=== PATIENT | male | born 1945 | race Caucasian/White ===

== ENCOUNTER → 2016-09-16 | Outpatient (CLI) | payer OTHER | LOC: MRI 09:45 → KOH-I 10:30 → MRI 10:45 | DX: D49.7 Neoplasm of unspecified behavior of endocrine glands and other parts of nervous system (principal); N28.1 Cyst of kidney, acquired; R16.1 Splenomegaly, not elsewhere classified | CPT/HCPCS: 74181 ==

== ENCOUNTER → 2020-07-27 | Outpatient (CLI) | payer MEDICARE ==
[~2020-07-27] MED LIST: ALBUTEROL2.5 MG/3 M INH; ASPIRIN EC81 MG PO; COLACE 100MG C100 MG PO; ELIQUIS2.5 MG PO; ENULOSE10 GM/15 M PO; HUMALOG100 UNIT/1 SQ; KENALOG CREAM 080 GM TOP; LANTUS100 UNIT/1 SC; NEPHRO-VITE RX1 EACH PO; PROBIOTIC1 EAC1 PO; RENVELA800 MG PO; VITAMIN E400 UNI1 PO
== END ==
LOC: EXRD 12:52
DX: N28.9 Disorder of kidney and ureter, unspecified (principal); I65.23 Occlusion and stenosis of bilateral carotid arteries; I77.0 Arteriovenous fistula, acquired; Z99.2 Dependence on renal dialysis
CPT/HCPCS: 93880; 93986

== ENCOUNTER 2020-09-15 10:03 | Observation (INO) | payer MEDICARE ==
[~2020-09-15] VITALS: Ht 188 cm; Wt 113.4 kg
[2020-09-15 12:55] LABS: HEMOGLOBIN 11.7 gm/dl (14.0-17.5); RED BLOOD COUNT 3.91 M/UL (4.20-5.50); WHITE BLOOD COUNT 6.2 K/UL (4.5-11.0)
[2020-09-15] MEDS ORDERED: RENVELA800 MG PO (14:11)
[2020-09-15] MEDS ORDERED: ELIQUIS2.5 MG PO (14:11)
[2020-09-15] MEDS ORDERED: KENALOG CREAM 080 GM TOP (14:12)
[2020-09-15] MEDS ORDERED: NEPHRO-VITE RX1 EACH PO (14:13)
[2020-09-15] MEDS ORDERED: ENULOSE10 GM/15 M PO (14:13)
[2020-09-15] MEDS ORDERED: ASPIRIN EC81 MG PO (14:13)
[2020-09-15] MEDS ORDERED: PROBIOTIC1 EAC1 PO (14:14)
[2020-09-15] MEDS ORDERED: COLACE 100MG C100 MG PO (14:14)
[2020-09-15] MEDS ORDERED: VITAMIN E400 UNI1 PO (14:14)
[2020-09-15] MEDS ORDERED: LANTUS100 UNIT/1 SC (14:15)
[2020-09-15] MEDS ORDERED: HUMALOG100 UNIT/1 SQ (14:15)
[2020-09-15] MEDS ORDERED: ALBUTEROL2.5 MG/3 M INH (14:16)
[2020-09-16 07:54] LABS: HEMOGLOBIN 10.8 gm/dl (14.0-17.5); RED BLOOD COUNT 3.62 M/UL (4.20-5.50); WHITE BLOOD COUNT 5.3 K/UL (4.5-11.0)
== END 2020-09-16 21:15 | disposition home or self-care (01) ==
LOC: ER1 10:03 → CDU 13:35 → ER1 13:35 → M/S 09-16 09:20 → CDU 09-16 09:20 → M/S 09-16 20:44
PROVIDERS: Emergency Medicine; Surgery; ADMIT Internal Medicine
PROC: 05C73ZZ Extirpation of Matter from Right Axillary Vein, Percutaneous Approach (ICD-10-PCS; principal; 2020-09-16 10:00)
PROC: 057 Upper Veins, Dilation (ICD-10-PCS; principal; 2020-09-16 10:00)
PROC: B54MZZ3 Ultrasonography of Right Upper Extremity Veins, Intravascular (ICD-10-PCS; principal; 2020-09-16 10:00)
DX: T82.868A Thrombosis due to vascular prosthetic devices, implants and grafts, initial encounter (principal); I12.0 Hypertensive chronic kidney disease with stage 5 chronic kidney disease or end stage renal disease; E11.22 Type 2 diabetes mellitus with diabetic chronic kidney disease; N18.6 End stage renal disease; I48.91 Unspecified atrial fibrillation; I48.92 Unspecified atrial flutter; I25.10 Atherosclerotic heart disease of native coronary artery without angina pectoris; G47.33 Obstructive sleep apnea (adult) (pediatric); E87.2 Acidosis; I25.2 Old myocardial infarction; K21.9 Gastro-esophageal reflux disease without esophagitis; I45.10 Unspecified right bundle-branch block; E66.01 Morbid (severe) obesity due to excess calories; Z68.32 Body mass index [BMI] 32.0-32.9, adult; Z20.822 Contact with and (suspected) exposure to COVID-19; Z79.4 Long term (current) use of insulin; Z79.01 Long term (current) use of anticoagulants; Z79.82 Long term (current) use of aspirin; Z79.899 Other long term (current) drug therapy; Z99.2 Dependence on renal dialysis; Z95.1 Presence of aortocoronary bypass graft; Y83.2 Surgical operation with anastomosis, bypass or graft as the cause of abnormal reaction of the patient, or of later complication, without mention of misadventure at the time of the procedure
CPT/HCPCS: 71045; 75605; 80053; 82962; 85025; 85610; 85730; 86850; 86900; 86901; 86920; 90935; 93005; 93931; 99285; C1725; C1757; C1769; C1887; C1894; C2623; G0378; J0690; J1100; J1580; J1642; J1644; J2370; J2405; J2704; J3010; J7040; J7050; J7120; Q9962; U0002

== ENCOUNTER → 2022-02-11 | Outpatient (CLI) | payer MEDICARE | LOC: EXRD 15:00 → US 15:36 | DX: E11.621 Type 2 diabetes mellitus with foot ulcer (principal); L97.522 Non-pressure chronic ulcer of other part of left foot with fat layer exposed; L97.422 Non-pressure chronic ulcer of left heel and midfoot with fat layer exposed; I70.244 Atherosclerosis of native arteries of left leg with ulceration of heel and midfoot; I70.245 Atherosclerosis of native arteries of left leg with ulceration of other part of foot; Z79.4 Long term (current) use of insulin | CPT/HCPCS: 93926 ==